=== PATIENT | female | born 1965 | race African-American/Black ===

== ENCOUNTER 2018-01-05 09:38 | Emergency (ER) | payer BC ==
[2018-01-05] MEDS: predniSONE 20 MG TABLET PO ×2 (10:25)
[2018-01-05] MEDS: KETOROLAC 30 MG/ML INJ. IM ×2 (10:25)
[2018-01-05] MEDS: MORPHINE SULFATE 10 MG/ML VIAL. IM ×2 (10:25)
[2018-01-05] MEDS: ORPHENADRINE CITRATE 60 MG/2 ML VIAL. IM ×2 (10:26)
== END 2018-01-05 13:01 | disposition home or self-care (01) ==
LOC: ER 09:38
DX: G89.29 Other chronic pain (principal); M54.41 Lumbago with sciatica, right side; M54.42 Lumbago with sciatica, left side; I10 Essential (primary) hypertension; Z86.718 Personal history of other venous thrombosis and embolism; Z88.6 Allergy status to analgesic agent
CPT/HCPCS: 96372; 99284; J1885; J2270; J2360; J7512

== ENCOUNTER → 2018-03-12 | Outpatient (CLI) | payer BC ==
[2018-01-05 10:53] VITALS: BP 118/69
[~2018-03-12] MED LIST: LIDO700A39 TP; ORPH100T PO; PRED20TA PO
--- NOTE | 2018-03-14 12:34 | RAD ---
DATE: 03/12/2018 EXAM: DIGITAL SCREEN BILAT W/CAD HISTORY: Routine screening COMPARISON: None available This study was interpreted with the benefit of Computerized Aided Detection (CAD). Breast Density: SCATTERED The breast parenchyma shows scattered fibroglandular densities. Breast parenchyma level B. FINDINGS: No breast mass or architectural distortion is evident. Minimal benign type calcification is present. No suspicious microcalcifications are seen. IMPRESSION: There is no mammographic evidence of malignancy in either breast. BI-RADS CATEGORY: 2 BENIGN FINDING(S) RECOMMENDED FOLLOW-UP: 12M 12 MONTH FOLLOW-UP PQRS compliance statement: Patient information was entered into a reminder system with a target due date for the next mammogram. Mammography is a sensitive method for finding small breast cancers, but it does not detect them all and is not a substitute for careful clinical examination. A negative mammogram does not negate a clinically suspicious finding and should not result in delay in biopsying a clinically suspicious abnormality. "Our facility is accredited by the [employer] Mammography Program."
== END | disposition home or self-care (01) ==
LOC: MAMMO 12:12
PROVIDERS: ATTEND Internal Medicine
DX: Z12.31 Encounter for screening mammogram for malignant neoplasm of breast (principal); I10 Essential (primary) hypertension; Z86.718 Personal history of other venous thrombosis and embolism; Z88.6 Allergy status to analgesic agent
CPT/HCPCS: 77067

== ENCOUNTER → 2018-12-31 | Day surgery (SDC) | payer BC ==
[~2018-12-31] VITALS: Ht 177.8 cm; Wt 102.0 kg
[~2018-12-31] MED LIST changes: +BUPIVACAINE-EPI 0.25%-1:200000 MPF 30 ML VIAL. ONE; +DEXAMETHASONE SOD PHOS 4 MG/ML VIAL ONE; +HYDROmorphone 2 MG/ML VIAL IV PRN; +IV RINGERS,LACTATED 1000ML 1,000 ML IV SCH; +KETOROLAC 30 MG/ML INJ FOR OR. INJ ONE; +LIDO700A21 TP; -LIDO700A39 TP; +LIDOCAINE 1% PF 2 ML VIAL. ID PRN; +LIDOCAINE 2% PF 5 ML VIAL. ONE; +LISI1TAB5 PO; +MORPHINE SULFATE 2 MG/ML VIAL. IV PRN; +MULT-650 PO; +ONDANSETRON PF 4 MG/2 ML VIAL. IV PRN; +ONDANSETRON PF 4 MG/2 ML VIAL. ONE; +OXYTOCIN 10 UNIT/ML VIAL. ONE; +PHEN37.53 PO; +PROCHLORPERAZINE 10 MG/2 ML VIAL. IV PRN; +PROPOFOL 20 ML IV ONE; +SEVOFLURANE 16 TO 30 MINUTES. IH ONE; +TOPI50TA8 PO; +ceFAZolin 2GM PREMIX 2 GM/50 ML BAG IV ONE; +fentaNYL PF VIAL 100 MCG/2 ML VIAL IV PRN; +fentaNYL PF VIAL 100 MCG/2 ML VIAL ONE; +miSOPROStol 200 MCG TABLET ONE
--- NOTE | 2018-12-31 13:11 | PDOC ---
GENERAL General: 53 yrs old AA Lady scheduled for D&C under GA. For Postmenopausal bleeding. VITAL SIGNS Vital Signs/I&O: Vital Signs Date Time Temp Pulse Resp B/P (MAP) Pulse Ox O2 Delivery O2 Flow Rate FiO2 12/31/18 11:28 97.9 56 20 97 97.9 12/31/18 11:26 103/52 Room Air ALLERGIES Allergies: Allergies Coded Allergies Type Severity Reaction Last Updated Verified aspirin Allergy Intermediate was told not to take after PE at age 21 12/31/18 Yes MEDS Medications: Current Medications Medications (Trade) Dose Ordered Sig/Renato Route PRN Reason Start Time Stop Time Status Last Admin Dose Admin Ringer's Solution 1,000 ml @ 30 mls/hr Q24H IV 12/31/18 07:00 12/31/18 18:59 12/31/18 11:37 LAB Lab: Laboratory Tests Test 12/31/18 11:16 POC Urine HCG, Qualitative Hcg negative (Negative) IMAGING Imaging: Under GA Diagnostic D&C done without any Problem. EBL. 7cc. Will see her in office in 2 weeks. ROSLYN MENDOZA MD Dec 31, 2018 13:11
--- NOTE | 2018-12-31 13:19 | OP ---
DATE OF SURGERY: 12/31/2018 PREOPERATIVE DIAGNOSIS: Postmenopausal bleeding. POSTOPERATIVE DIAGNOSIS: Postmenopausal bleeding. OPERATION PERFORMED: Diagnostic D and C. DESCRIPTION OF PROCEDURE: The patient was taken to the operating room. Under general anesthesia, she was placed in a dorsal lithotomy position. Perineum was prepped and draped in the usual manner. Weighted speculum inserted in the posterior vaginal wall. Anterior lip of the cervix held with a tenaculum. Uterine sound is used to measure the length of the uterine cavity, which appears to be normal, and the cervix was dilated first, and medium sized curette was used to curet the endometrial cavity. All the curettings obtained were subjected for pathological examination, which was scant amount. The patient tolerated the procedure well. The speculum tenaculum is removed. The patient was sent to the recovery room in good condition. No complications encountered at the time of the surgery. Postoperative condition is stable. She will be followed in the office in 2 weeks for postoperative care and treatment. ROSLYN MENDOZA MD DR: MARCO/ethan JOB#: [id number] / [id number]
[2018-12-31 13:55] VITALS: BP 130/66
--- NOTE | 2019-01-02 11:07 | PATHOLOGY ---
[facility] Accession Number: [id number] . 01 Material submitted: . endometrium - ENDOMETRIAL CURETTINGS . 01 Clinical history: . PMB . 02 Diagnosis: Endometrial glands, stroma and squamous mucosa "endometrial curettings": - Few benign fragments of endometrial glands admixed with stroma without hyperplasia or malignancy. - Sections also reveal benign fragments of squamous epithelium without atypia or malignancy. See comment. ([facility]; 01/02/2019) QMS/01/02/2019 . 02 Comment: The endometrial tissue is scant for assessment. . Suggest clinical correlation and follow-up as clinically indicated. ([facility]; 01/02/2019) . 02 Electronically signed: . Eliazar Landry MD, Pathologist NPI- [id number] . 01 Gross description: . Received in formalin labeled "Flores, Yola, endometrial curettings" is soft, mucoid, and hemorrhagic moran-brown tissue measuring 2.0 x 1.1 x 0.2 cm which is entirely submitted in A1. ([facility]; 01/01/2019) SYU/SYU . 02 Pathologist provided ICD-10: N95.0 . 02 CPT . 690224 Specimen Comment: A courtesy copy of this report has been sent to Specimen Comment: [phone], . Specimen Comment: Report sent to / DR ESTRADA Performed at: 01 [facility] [address], [place] [id number] MD Juaquin Stokes MD Phone: [phone] Performed at: 02 [facility] [address], [place] [id number] MD Kevin Myles MD Phone: [phone]
== END ==
LOC: SURG 10:57
PROVIDERS: ATTEND Obstetrics & Gynecology
DX: N95.0 Postmenopausal bleeding (principal); Z88.8 Allergy status to other drugs, medicaments and biological substances
CPT/HCPCS: 58558; 81025; 88305; A7015; J0696; J1100; J1885; J2001; J2405; J2704; J3010; J2590

== ENCOUNTER → 2019-04-10 | Outpatient (CLI) | payer BC ==
[2018-12-31 13:55] VITALS: BP 130/66
[~2019-04-10] MED LIST changes: -BUPIVACAINE-EPI 0.25%-1:200000 MPF 30 ML VIAL. ONE; -DEXAMETHASONE SOD PHOS 4 MG/ML VIAL ONE; -HYDROmorphone 2 MG/ML VIAL IV PRN; -IV RINGERS,LACTATED 1000ML 1,000 ML IV SCH; -KETOROLAC 30 MG/ML INJ FOR OR. INJ ONE; -LIDOCAINE 1% PF 2 ML VIAL. ID PRN; -LIDOCAINE 2% PF 5 ML VIAL. ONE; +LISI1TAB19 PO; -LISI1TAB5 PO; -MORPHINE SULFATE 2 MG/ML VIAL. IV PRN; -ONDANSETRON PF 4 MG/2 ML VIAL. IV PRN; -ONDANSETRON PF 4 MG/2 ML VIAL. ONE; -OXYTOCIN 10 UNIT/ML VIAL. ONE; -PROCHLORPERAZINE 10 MG/2 ML VIAL. IV PRN; -PROPOFOL 20 ML IV ONE; -SEVOFLURANE 16 TO 30 MINUTES. IH ONE; -ceFAZolin 2GM PREMIX 2 GM/50 ML BAG IV ONE; -fentaNYL PF VIAL 100 MCG/2 ML VIAL IV PRN; -fentaNYL PF VIAL 100 MCG/2 ML VIAL ONE; -miSOPROStol 200 MCG TABLET ONE
--- NOTE | 2019-04-12 08:29 | KCIC ---
BILATERAL SCREENING MAMMOGRAM History: Routine screening. Comparison: Bilateral mammograms March 12 2018. Technique: Routine bilateral digital mammogram views were obtained. Findings: Breast Tissue Density B : There are scattered areas of fibroglandular density. There are no dominant masses, suspicious microcalcifications, or architectural distortion. IMPRESSION: No mammographic evidence of malignancy. Recommend routine screening. BI-RADS category 1: Negative. The images were reviewed with computer aided detection. Patient information is entered into the reminder system with a target due date for the next screening mammogram. Mammography is the most sensitive method for finding small breast cancers, but it does not detect them all and is not a substitute for careful clinical examination. A negative mammogram does not negate a clinically suspicious finding and should not result in delay in biopsying a clinically suspicious abnormality. "Our facility is accredited by the [employer] Mammography Program." Electronically signed by: Lamin Delgado MD (04/12/2019 8:26 AM) [id number]
== END | disposition home or self-care (01) ==
LOC: KCIC MAMMO 11:17
PROVIDERS: ATTEND Obstetrics & Gynecology
DX: Z12.31 Encounter for screening mammogram for malignant neoplasm of breast (principal)
CPT/HCPCS: 77067

== ENCOUNTER 2019-05-27 06:25 | Inpatient (IN) | payer BC ==
--- NOTE | 2019-05-26 12:53 | HP ---
ADMIT DATE: CHIEF COMPLAINT AND HISTORY OF PRESENT ILLNESS: This patient is a 54-year-old -[place] female who is a 1, para 1 and her last delivery was about 25 years ago. The patient was referred by Dr. Carreon for postmenopausal bleeding and she started menopause 2 years ago and then started bleeding on 12/13/2018 for 4 days and she also had a back surgery for lipoma and she is on high blood pressure medications as well as phentermine to lose weight. REVIEW OF SYSTEMS: Essentially negative except as mentioned above. PHYSICAL EXAMINATION: VITAL SIGNS: Reveals the vital signs being stable. HEAD, EYES, NOSE, THROAT: Within normal limits. LUNGS: Clear. HEART: Sounds regular sinus rhythm. ABDOMEN: Soft. PELVIC: Shows external genitalia being normal. Cervical os is closed. On bimanual exam, uterus feels bulky. No adnexal masses are palpable at this time. Mild vaginal bleeding noted at the time of the examination. EXTREMITIES: No edema of feet. She did have a diagnostic D and C on 12/31/2018. At the present time, she is scheduled for an abdominal hysterectomy. DIAGNOSES: Postmenopausal bleeding, hypertension. PLAN: Abdominal hysterectomy. The details of the surgery, the risks and complications, like hemorrhage, infection, injury to the bladder or bowel has been explained to the patient and she is willing for the operation at the present time. ROSLYN MENDOZA MD DR: MARCO/ethan JOB#: [id number] / [id number]
[2019-05-27] VITALS (12 sets, daily range): BP systolic 127–169; BP diastolic 61–90
[~2019-05-27] VITALS: Ht 175.3 cm; Wt 107.0 kg
[2019-05-27] MEDS ORDERED: LIDOCAINE 1% PF 2 ML VIAL. ID PRN (07:00)
[2019-05-27] MEDS ORDERED: ONDANSETRON PF 4 MG/2 ML VIAL. IV PRN (07:00)
[2019-05-27] MEDS ORDERED: HYDROmorphone 2 MG/ML VIAL IV PRN (07:00)
[2019-05-27] MEDS ORDERED: fentaNYL PF VIAL 100 MCG/2 ML VIAL IV PRN (07:00)
[2019-05-27] MEDS: IV RINGERS,LACTATED 1000ML 1,000 ML IV SCH ×2 (07:29→10:20)
--- NOTE | 2019-05-27 07:41 | RAD ---
Two-view chest dated 05/27/2019. Comparison made to 06/18/2010. CLINICAL INDICATION: Preop for hysterectomy. FINDINGS: PA and lateral views obtained. Heart and mediastinal contours are within normal limits. Lungs are clear. No consolidation or pleural effusion. No pneumothorax. IMPRESSION: No acute radiographic abnormality. Electronically signed by: Mirza Tyson MD (05/27/2019 7:38 AM) [facility]
--- NOTE | 2019-05-27 07:48 | EKG ---
[facility] [address] [place] [address] Test Date: 2019-05-27 Test Time: 07:44:10 Pat Name: BRIDGET GUTIERREZ Department: Room: [place] [address] Gender: F Director Fundraising: : 1965 Requested By: ROSLYN MENDOZA Order Number: [id number] Reading MD: Measurements Intervals [place] Rate: 55 P: 52 TX: 156 QRS: 42 QRSD: 74 T: 43 QT: 418 QTc: 402 Interpretive Statements Cannot analyze ECG CHEST LEAD(S) MISSING! (Measurements might be questionable) RI6.01 No previous ECG available for comparison
[2019-05-27] MEDS ORDERED: ONDANSETRON PF 4 MG/2 ML VIAL. ONE (07:54)
[2019-05-27] MEDS ORDERED: DEXAMETHASONE SOD PHOS 4 MG/ML VIAL ONE ×2 (07:54→08:33)
[2019-05-27] MEDS ORDERED: LIDOCAINE 2% PF 5 ML VIAL. ONE (07:54)
[2019-05-27] MEDS ORDERED: fentaNYL PF VIAL 100 MCG/2 ML VIAL ONE ×2 (07:54→10:04)
[2019-05-27] MEDS ORDERED: PROPOFOL 20 ML IV ONE (07:54)
[2019-05-27] MEDS ORDERED: MIDAZOLAM HCL/PF 2 MG/2 ML VIAL. ONE (07:54)
[2019-05-27] MEDS ORDERED: ROCURONIUM 50 MG/5 ML VIAL. ONE (07:54)
[2019-05-27 08:00] LABS: BILIRUBIN,URINE NEGATIVE (NEG); CLARITY,URINE CLEAR; COLOR,URINE YELLOW; NITRITE,URINE NEGATIVE (NEG); PROTEIN,URINE NEGATIVE (NEG-TRACE)
[2019-05-27 08:04] LABS: BASO % 0 % (0-3); EOS # 0.1 x10^3/uL (0.0-0.7); EOS % 1 % (0-3); HEMATOCRIT 37.8 % (36.0-47.0); HEMOGLOBIN 12.5 g/dL (12.0-15.5); LYMPH # 2.3 x10^3/uL (1.0-4.8); LYMPH % 55 % (24-48); MEAN CORPUSCULAR HEMOGLOBIN 30 pg (25-35); MEAN CORPUSCULAR HGB CONC 33 g/dL (31-37); MEAN CORPUSCULAR VOLUME 92 fL (79-100); MONO # 0.2 x10^3/uL (0.0-1.1); MONO % 5 % (0-9); NEUT # 1.6 x10^3/uL (1.8-7.7); NEUT % 38 % (31-73); PLATELET COUNT 174 x10^3/uL (140-400); RED BLOOD COUNT 4.11 x10^6/uL (3.50-5.40); RED CELL DISTRIBUTION WIDTH 14.8 % (11.5-14.5); WHITE BLOOD COUNT 4.2 x10^3/uL (4.0-11.0)
[2019-05-27 08:16] LABS: BACTERIA,URINE FEW /HPF (0-FEW); RBC,URINE 0 /HPF (0-2); SQUAMOUS EPITHELIAL CELL,UR FEW /LPF; WBC,URINE OCC /HPF (0-4)
[2019-05-27] MEDS ORDERED: FAMOTIDINE 20 MG/2 ML VIAL ONE (08:33)
[2019-05-27] MEDS ORDERED: GLYCOPYRROLATE 1 MG/5 ML VIAL. ONE (08:57)
[2019-05-27] MEDS ORDERED: NEOSTIGMINE METHYLSULFATE 5 MG/5 ML SYRINGE. ONE (09:10)
[2019-05-27] MEDS ORDERED: GELATIN SPONGE SIZE 12-7MM SPONGE. ONE (09:28)
[2019-05-27] MEDS ORDERED: GELATIN SPONGE SIZE 100. ONE (09:28)
[2019-05-27] MEDS ORDERED: DESFLURANE 61 TO 120 MINUTES IH ONE (09:46)
[2019-05-27] MEDS ORDERED: IV NORMAL SALINE 1000ML BAG 1,000 ML IV SCH (10:03)
--- NOTE | 2019-05-27 10:03 | PDOC ---
GENERAL General: 54yrs old Lady admitted for postmenopausal bleeding. Also Admitted for Abdominal Hysterectomy. VITAL SIGNS Vital Signs/I&O: Vital Signs Date Time Temp Pulse Resp B/P (MAP) Pulse Ox O2 Delivery O2 Flow Rate FiO2 05/27/19 07:25 97.3 55 18 99 97.3 05/27/19 07:22 163/79 Room Air ALLERGIES Allergies: Allergies Coded Allergies Type Severity Reaction Last Updated Verified aspirin Allergy Intermediate was told not to take after PE at age 21 05/27/19 Yes MEDS Medications: Current Medications Medications (Trade) Dose Ordered Sig/Renato Route PRN Reason Start Time Stop Time Status Last Admin Dose Admin Ringer's Solution 1,000 ml @ 30 mls/hr Q24H IV 05/27/19 07:00 05/27/19 18:59 05/27/19 07:29 Cefazolin Sodium/ Dextrose 50 ml @ 100 mls/hr 1X PREOP PRN IV PRIOR TO PROCEDURE 05/27/19 06:00 05/27/19 18:00 05/27/19 08:20 Gelatin (Gelfoam Size 12-7mm) 1 each STK-MED ONCE .ROUTE 05/27/19 09:28 05/27/19 09:28 DC 05/27/19 09:29 LAB Lab: Laboratory Tests Test 05/27/19 07:30 05/27/19 07:40 White Blood Count 4.2 x10^3/uL (4.0-11.0) Red Blood Count 4.11 x10^6/uL (3.50-5.40) Hemoglobin 12.5 g/dL (12.0-15.5) Hematocrit 37.8 % (36.0-47.0) Mean Corpuscular Volume 92 fL (79-100) Mean Corpuscular Hemoglobin 30 pg (25-35) Mean Corpuscular Hemoglobin Concent 33 g/dL (31-37) Red Cell Distribution Width 14.8 % (11.5-14.5) H Platelet Count 174 x10^3/uL (140-400) Neutrophils (%) (Auto) 38 % (31-73) Lymphocytes (%) (Auto) 55 % (24-48) H Monocytes (%) (Auto) 5 % (0-9) Eosinophils (%) (Auto) 1 % (0-3) Basophils (%) (Auto) 0 % (0-3) Neutrophils # (Auto) 1.6 x10^3/uL (1.8-7.7) L Lymphocytes # (Auto) 2.3 x10^3/uL (1.0-4.8) Monocytes # (Auto) 0.2 x10^3/uL (0.0-1.1) Eosinophils # (Auto) 0.1 x10^3/uL (0.0-0.7) Basophils # (Auto) 0.0 x10^3/uL (0.0-0.2) Urine Collection Type Unknown Urine Color Yellow Urine Clarity Clear Urine pH 6.0 Urine Specific [place] 1.020 Urine Protein Negative mg/dL (NEG-TRACE) Urine Glucose (UA) Negative mg/dL (NEG) Urine Ketones (Stick) Negative mg/dL (NEG) Urine Blood Negative (NEG) Urine Nitrite Negative (NEG) Urine Bilirubin Negative (NEG) Urine Urobilinogen Dipstick 1.0 mg/dL (0.2 mg/dL) Urine Leukocyte Esterase Trace (NEG) Urine RBC 0 /HPF (0-2) Urine WBC Occ /HPF (0-4) Urine Squamous Epithelial Cells Few /LPF Urine Bacteria Few /HPF (0-FEW) Urine Mucus Slight /LPF Laboratory Tests 05/27/19 07:30 ASSESSMENT & PLAN A&P Under GA Abdominal Hysterectomy done. EBL 100cc. ROSLYN MENDOZA MD May 27, 2019 10:03
[2019-05-27] MEDS ORDERED: NALOXONE 0.4 MG/ML VIAL. IV PRN (10:15)
[2019-05-27] MEDS ORDERED: diphenhydrAMINE HCL 25 MG CAPSULE PO PRN (10:15)
[2019-05-27] MEDS ORDERED: ONDANSETRON PF 4 MG/2 ML VIAL. IVP PRN (10:15)
[2019-05-27] MEDS ORDERED: oxyCODONE/APAP 5/325 1 TAB TABLET PO PRN (10:15)
[2019-05-27] MEDS ORDERED: DEXTROSE 50% 25 GM / 50ML DISP.SYRIN. IV PRN (10:15)
[2019-05-27] MEDS ORDERED: MORPHINE SULFATE/PF 30 ML IV PRN (10:15)
[2019-05-27] MEDS ORDERED: 0.9 % SODIUM CHLORIDE 10 ML DISP.SYRIN. IV PRN (10:15)
[2019-05-27] MEDS ORDERED: ZOLPIDEM 5 MG TABLET. PO PRN (10:15)
[2019-05-27] MEDS: PROCHLORPERAZINE 10 MG/2 ML VIAL. IV PRN ×2 (10:21→11:07)
[2019-05-27] MEDS: fentaNYL PF VIAL 100 MCG/2 ML VIAL IV PRN ×2 (10:22→11:08)
[2019-05-27] MEDS: MORPHINE SULFATE 2 MG/ML VIAL. IV PRN ×2 (10:24→11:08)
--- NOTE | 2019-05-27 10:30 | OP ---
DATE OF SURGERY: 05/27/2019 PREOPERATIVE DIAGNOSIS: Postmenopausal bleeding. POSTOPERATIVE DIAGNOSIS: Postmenopausal bleeding. OPERATION PERFORMED: Abdominal hysterectomy. DESCRIPTION OF PROCEDURE: The patient was taken to the operating room under general anesthesia. She was placed in a dorsal supine position. Rosas catheter introduced into bladder for continuous bladder drainage. Lower abdomen was prepped and draped in the usual manner. A Pfannenstiel incision was made in the lower abdomen and abdomen opened in layers. Visualization of pelvic structures revealed slightly enlarged uterus and both the tubes and ovaries appeared normal. The round ligament on either side was clamped, ligated, cut and sutured with #1 chromic catgut sutures and the broad ligament on either side was clamped, ligated, cut and sutured with 0 chromic catgut sutures and the bladder flap peritoneum was dissected. Bladder was pushed way down the lower segment of the uterus. Uterine vessels on either side were held with Rafal clamps and the vessels were doubly ligated with 0 chromic catgut sutures. After the complete reflection of bladder flap peritoneum, the uterosacral cardinal ligaments on either side was clamped, ligated, cut and sutured with 0 chromic catgut sutures. A stab wound incision was made below the cervix posteriorly and the incision was extended all around below the cervix. Thus, the uterus with the cervix was removed and subjected for pathological examination. The cut edges of the vaginal mucous membrane were brought together in the midline and sutured together using 0 chromic catgut sutures. Angle of the vagina was anchored to the uterosacral cardinal ligaments on either side using [id number] 0 chromic catgut sutures and after this, a small piece of Gelfoam sponge was placed below the bladder flap peritoneum. Re-peritonealization was done with continuous 0 chromic catgut sutures and after this, there was no oozing or any active bleeding and abdomen closed in layers using continuous 0 chromic catgut sutures for the peritoneum, the muscle, the fascia with 0 chromic catgut sutures and then 3-0 plain catgut sutures applied for subcutaneous tissue, 3-0 Vicryl subcutaneous sutures were placed, a pressure dressing was given. The patient was sent to the recovery room in good condition. No complications encountered at the time of the procedure. Estimated blood loss about 100 mL. Postoperative condition was stable. ROSLYN MENDOZA MD DR: Ghada JOB#: [id number] / [id number]
--- NOTE | 2019-05-27 11:35 | NUR ---
Patient admitted to room 305 per bed from PACU. Assessment completed and some orientation given but the patient is very drowsy but she does arouse to her name. Family at bedside.
[2019-05-27] MEDS: IV NORMAL SALINE 1000ML BAG 1,000 ML IV SCH ×2 (13:30→20:03)
[2019-05-27] MEDS: DOCUSATE SODIUM 100 MG CAPSULE. PO SCH (21:21)
[2019-05-28 03:55] VITALS: BP 120/55
[2019-05-28] MEDS: IV NORMAL SALINE 1000ML BAG 1,000 ML IV SCH (06:03)
--- NOTE | 2019-05-28 08:07 | PDOC ---
GENERAL General: Pt awake and feeling ok. Explained to pt about operative findings . Vital signs stable. VITAL SIGNS Vital Signs/I&O: Vital Signs Date Time Temp Pulse Resp B/P (MAP) Pulse Ox O2 Delivery O2 Flow Rate FiO2 05/28/19 03:55 98.2 82 12 120/55 (76) 100 Room Air 98.2 05/27/19 23:19 2.0 I & O 05/27/19 05/27/19 05/28/19 15:00 23:00 07:00 Intake Total 1750 ml 605 ml Output Total 350 ml 600 ml 1000 ml Balance 1400 ml 5 ml -1000 ml ALLERGIES Allergies: Allergies Coded Allergies Type Severity Reaction Last Updated Verified aspirin Allergy Intermediate was told not to take after PE at age 21 05/27/19 Yes MEDS Medications: Current Medications Medications (Trade) Dose Ordered Sig/Renato Route PRN Reason Start Time Stop Time Status Last Admin Dose Admin Gelatin (Gelfoam Size 12-7mm) 1 each STK-MED ONCE .ROUTE 05/27/19 09:28 05/27/19 09:28 DC 05/27/19 09:29 Sodium Chloride 1,000 ml @ 100 mls/hr Q10H IV 05/27/19 10:03 05/27/19 13:30 Sodium Chloride 1,000 ml @ 25 mls/hr Q24H IV 05/27/19 10:03 05/27/19 10:03 Morphine Sulfate 30 ml @ 0 mls/hr CONT PRN PRN IV PER PROTOCOL 05/27/19 10:15 05/27/19 11:09 Docusate Sodium (Colace) 100 mg BID PO 05/27/19 21:00 05/27/19 21:21 ASSESSMENT & PLAN A&P No fever. Abdomen soft. Urine clear. Will increase pt diet ROSLYN MENDOZA MD May 28, 2019 08:07
[2019-05-28] MEDS: oxyCODONE/APAP 5/325 1 TAB TABLET PO PRN ×3 (09:13→20:33)
[2019-05-28 11:10] VITALS: BP 118/62
[2019-05-28] MEDS: DOCUSATE SODIUM 100 MG CAPSULE. PO SCH ×2 (14:52→20:35)
[2019-05-28] MEDS: BENZOCAINE/MENTHOL LOZENGE. PO PRN (15:30)
[2019-05-28 18:55] VITALS: BP 104/56
[2019-05-28 23:06] VITALS: BP 114/64
[2019-05-29 03:00] VITALS: BP 118/58
[2019-05-29] MEDS: oxyCODONE/APAP 5/325 1 TAB TABLET PO PRN ×3 (03:10→18:25)
[2019-05-29 07:00] VITALS: BP 156/92
--- NOTE | 2019-05-29 09:17 | PDOC ---
GENERAL General: Patient doing ok. Has some abdominal pain and discomfort. VITAL SIGNS Vital Signs/I&O: Vital Signs Date Time Temp Pulse Resp B/P (MAP) Pulse Ox O2 Delivery O2 Flow Rate FiO2 05/29/19 07:00 98.0 80 16 156/92 (113) 99 Room Air 98.0 I & O 05/28/19 05/28/19 05/29/19 15:00 23:00 07:00 Intake Total 120 ml Balance 120 ml ALLERGIES Allergies: Allergies Coded Allergies Type Severity Reaction Last Updated Verified aspirin Allergy Intermediate was told not to take after PE at age 21 05/27/19 Yes MEDS Medications: Current Medications Medications (Trade) Dose Ordered Sig/Renato Route PRN Reason Start Time Stop Time Status Last Admin Dose Admin Throat Lozenges (Cepacol Sore Throat Lozenge) 1 abelino PRN Q2HRS PRN PO SORE THROAT 05/28/19 15:30 05/28/19 15:30 ASSESSMENT & PLAN A&P Abdomen soft. Incision healing well. Plan dismissal in am tomorrow. ROSLYN MENDOZA MD May 29, 2019 09:17
[2019-05-29] MEDS: DOCUSATE SODIUM 100 MG CAPSULE. PO SCH ×2 (09:25→20:49)
[2019-05-29] MEDS: BENZOCAINE/MENTHOL LOZENGE. PO PRN (09:25)
[2019-05-29 11:00] VITALS: BP 111/61
[2019-05-29 15:00] VITALS: BP 135/78
[2019-05-29 19:30] VITALS: BP 123/53
[2019-05-29 23:25] VITALS: BP 129/56
[2019-05-30] MEDS: oxyCODONE/APAP 5/325 1 TAB TABLET PO PRN ×3 (03:52→15:30)
[2019-05-30 03:53] VITALS: BP 127/45
[2019-05-30 07:00] VITALS: BP 120/69
[2019-05-30] MEDS ORDERED: MAGNESIUM HYDROXIDE 2,400 MG/30 ML ORAL.SUSP. PO PRN (09:00)
[2019-05-30] MEDS: DOCUSATE SODIUM 100 MG CAPSULE. PO SCH (09:22)
--- NOTE | 2019-05-30 10:43 | PDOC ---
GENERAL General: Patient doing ok. No problems. Likes to go hpme today. VITAL SIGNS Vital Signs/I&O: Vital Signs Date Time Temp Pulse Resp B/P (MAP) Pulse Ox O2 Delivery O2 Flow Rate FiO2 05/30/19 07:00 98.3 65 18 120/69 (86) 99 Room Air 98.3 I & O 05/29/19 05/29/19 05/30/19 15:00 23:00 07:00 Intake Total 520 ml 660 ml 480 ml Balance 520 ml 660 ml 480 ml ALLERGIES Allergies: Allergies Coded Allergies Type Severity Reaction Last Updated Verified aspirin Allergy Intermediate was told not to take after PE at age 21 05/27/19 Yes MEDS Medications: Current Medications Medications (Trade) Dose Ordered Sig/Renato Route PRN Reason Start Time Stop Time Status Last Admin Dose Admin Magnesium Hydroxide (Milk Of Magnesia) 2,400 mg PRN DAILY PRN PO CONSTIPATION 05/30/19 09:00 05/30/19 09:22 ASSESSMENT & PLAN A&P Vital signs stable. Abdomen soft. Incision healing ok. ROSLYN MENDOZA MD May 30, 2019 10:42
[2019-05-30 11:00] VITALS: BP 126/63
[2019-05-30] MEDS ORDERED: TRAM50TA PO (13:50)
[2019-05-30 15:00] VITALS: BP 141/85
--- NOTE | 2019-06-01 09:06 | PATHOLOGY ---
[facility] Accession Number: [id number] . 01 Material submitted: . uterus - UTERUS AND CERVIX . 01 Clinical history: . PMB . 02 Diagnosis: Uterus, abdominal hysterectomy: - Endometrial polyp. - Chronic cervicitis with focal squamous metaplasia. - Nabothian cysts, several, small. - Inactive/weakly proliferative endometrium. - Adenomyosis, uterine corpus,focal. ([facility]:knotter [facility]; 05/29/2019) R 06/01/2019 0808 Local . 02 Comment: There is no atypia or evidence of malignancy. ([facility]; 05/29/2019) . 02 Electronically signed: . Kevin Myles MD, Pathologist NPI- [id number] . 01 Gross description: . The specimen is received in formalin, labeled "Yola Flores, uterus and cervix" and consists of a 76 g uterus with attached cervix measuring 8.8 x 4.8 x 3.9 cm. The serosa is moran-brown with focal hemorrhage on the anterior aspect. The 1.0 cm slitlike cervical os is surrounded by focally hemorrhagic moran ectocervical mucosa. It is bivalved revealing multiple nabothian cysts. The endocervical canal is pink-moran and corrugated measuring 2.8 cm. The endometrial cavity is roughly triangular measuring 3.5 cm in length and up to 2.9 cm in width. The cavity is focally scarred and the endometrium is pink red and attenuated measuring 0.1 cm. There is a 1.0 x 0.7 cm polyp in the upper posterior endometrial cavity. The myometrium is pink-moran measuring up to 1.9 cm with no nodules or mass lesions. Dye Weigher Helper sections are submitted as follows: . A1: Anterior cervix A2: Posterior cervix A3: Anterior endomyometrium A4: Posterior endomyometrium A5: Endometrial polyp (SDY; 05/28/2019) SYU/SYU 05/28/2019 1346 Local . 02 Pathologist provided ICD-10: N84.0, N72, N88.8, N80.0 . 02 CPT . 800077 Specimen Comment: A courtesy copy of this report has been sent to [phone], [phone] Specimen Comment: [id number] Specimen Comment: Report sent to / DR ESTRADA Performed at: 01 [facility] [address], [place] [id number] MD Juaquin Stokes MD Phone: [phone] Performed at: 02 [facility] [address] [place], [place] [id number] MD Kevin Myles MD Phone: [phone]
== END 2019-05-30 16:30 | disposition home or self-care (01) | DRG 743 ==
LOC: OPSVCIP 06:25 → 3 NORTH 11:40
PROVIDERS: ADMIT Obstetrics & Gynecology; ATTEND Obstetrics & Gynecology
PROC: 0UT90ZZ Resection of Uterus, Open Approach (ICD-10-PCS; principal; 2019-05-27 08:30)
DX: N95.0 Postmenopausal bleeding (principal); I10 Essential (primary) hypertension; N85.2 Hypertrophy of uterus; Z90.710 Acquired absence of both cervix and uterus; Z88.6 Allergy status to analgesic agent
CPT/HCPCS: 36415; 71046; 81001; 85025; 86850; 86900; 86901; 87086; 88307; 93005; A7015; J0696; J0780; J1100; J2001; J2250; J2270; J2405; J2704; J2710; J3010; J3490; J7030; J7120; A4461; G0378

== ENCOUNTER 2019-07-19 19:40 | Emergency (ER) | payer BC ==
[~2019-07-19] VITALS: Ht 175.3 cm; Wt 107.0 kg
[~2019-07-19 19:40] MED LIST changes: +TRAM50TA PO
[2019-07-19] MEDS ORDERED: IV NORMAL SALINE 1000ML BAG 1,000 ML IV SCH (20:17)
--- NOTE | 2019-07-19 20:22 | PHYS DOC ---
Past Medical History Past Medical History: DVT, Hypertension, Other Additional Past Medical Histor: CHRONIC BACK PAIN, BULGING DISC Past Surgical History: Hysterectomy, Other Additional Past Surgical Histo: 5 BACK SX Alcohol Use: None Drug Use: None Adult General Chief Complaint Chief Complaint: NAUSEA/VOMITING/DIARRHA HPI HPI Patient is a 54 year old female who presents with a hysterectomy by Dr. Pierson May 27, 2019. She states that since then she has been unable to keep food down is consciously nauseated. She states she's also had a lot of constipation problems. Patient states she's been having to take milk of magnesia to help her have a stool. She states that 4 days ago was her last bowel movement that she took milk of magnesia. She states that she has been seen by her TUCK POINTER and her primary care Dr Estrada and she is switched around foods thinking that maybe the different foods are causing her to vomit or have acid reflux. She states that she took all spicy foods and has been trying to stay away from different high- fat foods as she has sometimes correlate this with vomiting. She states now she is just vomiting every now and then but is keeping down some food. She states that last night she ate a salad and some chicken and rice but she throughout the Rice only. She states today all she's had is soup but she has kept it down. She states she is keeping down fluids. She states that the only abdominal pain that she has some lower abdomen area where her hysterectomy go incision is located. Patient denies fever, dysuria, blood in her vomit, diarrhea, blood in her stool, chest pain, shortness of air, dizziness, visual changes, numbness tingling, weak ness, headache. Review of Systems Review of Systems GI: low mid abdominal pain intermittent, nausea, vomiting intermittent, constipa tion, denies bloody stools or diarrhea [] All other systems were reviewed and found to be within normal limits, except as documented in this note. Current Medications Current Medications Current Medications Medications (Trade) Dose Ordered Sig/Renato Start Time Stop Time Status Last Admin Dose Admin Famotidine (Pepcid Vial) 20 mg 1X ONCE 07/19/19 20:30 07/19/19 20:31 DC 07/19/19 20:59 20 MG Info (CONTRAST GIVEN -- Rx MONITORING) 1 each PRN DAILY PRN 07/19/19 21:15 07/21/19 21:14 Iohexol (Omnipaque 300 Mg/ml) 100 ml 1X ONCE 07/19/19 21:15 07/19/19 21:16 DC Ondansetron HCl (Zofran) 4 mg 1X ONCE 07/19/19 20:30 07/19/19 20:31 DC 07/19/19 20:59 4 MG Sodium Chloride 1,000 ml @ 1,000 mls/hr Q1H 07/19/19 20:17 07/19/19 21:16 DC 07/19/19 20:56 1,000 MLS/HR Allergies Allergies Allergies Coded Allergies Type Severity Reaction Last Updated Verified aspirin Allergy Intermediate was told not to take after PE at age 21 05/27/19 Yes Physical Exam Physical Exam Constitutional: Well developed, well nourished, no acute distress, non-toxic appearance. [] HENT: Normocephalic, atraumatic, bilateral external ears normal, oropharynx moist, no oral exudates, nose normal. [] Eyes: PERRLA, EOMI, conjunctiva normal, no discharge. [] Neck: Normal range of motion, no tenderness, supple, no stridor. [] Cardiovascular:Heart rate regular rhythm, no murmur [] Lungs & Thorax: Bilateral breath sounds clear to auscultation [] Abdomen: Bowel sounds normal, soft, Low mid tenderness, no masses, no pulsatile masses. [] Skin: Warm, dry, no erythema, no rash. [] Back: No tenderness, no CVA tenderness. [] Extremities: No tenderness, no cyanosis, no clubbing, ROM intact, no edema. [] Neurologic: Alert and oriented X 3, normal motor function, normal sensory function, no focal deficits noted. [] Psychologic: Affect normal, judgement normal, mood normal. [] Current Patient Data Vital Signs Vital Signs Date Time Temp Pulse Resp B/P (MAP) Pulse Ox O2 Delivery O2 Flow Rate FiO2 07/19/19 20:01 98.1 76 18 145/67 (93) 100 Room Air 98.1 Lab Values Laboratory Tests Test 07/19/19 20:30 07/19/19 20:32 White Blood Count 4.6 x10^3/uL (4.0-11.0) Red Blood Count 4.07 x10^6/uL (3.50-5.40) Hemoglobin 12.3 g/dL (12.0-15.5) Hematocrit 37.3 % (36.0-47.0) Mean Corpuscular Volume 92 fL (79-100) Mean Corpuscular Hemoglobin 30 pg (25-35) Mean Corpuscular Hemoglobin Concent 33 g/dL (31-37) Red Cell Distribution Width 14.9 % (11.5-14.5) H Platelet Count 197 x10^3/uL (140-400) Neutrophils (%) (Auto) 40 % (31-73) Lymphocytes (%) (Auto) 53 % (24-48) H Monocytes (%) (Auto) 5 % (0-9) Eosinophils (%) (Auto) 1 % (0-3) Basophils (%) (Auto) 1 % (0-3) Neutrophils # (Auto) 1.8 x10^3/uL (1.8-7.7) Lymphocytes # (Auto) 2.4 x10^3/uL (1.0-4.8) Monocytes # (Auto) 0.2 x10^3/uL (0.0-1.1) Eosinophils # (Auto) 0.1 x10^3/uL (0.0-0.7) Basophils # (Auto) 0.0 x10^3/uL (0.0-0.2) Prothrombin Time 13.2 SEC (11.7-14.0) Prothrombin Time INR 1.0 (0.8-1.1) Urine Collection Type Void Urine Color Yellow Urine Clarity Clear Urine pH 6.0 Urine Specific [place] 1.025 Urine Protein Negative mg/dL (NEG-TRACE) Urine Glucose (UA) Negative mg/dL (NEG) Urine Ketones (Stick) Negative mg/dL (NEG) Urine Blood Negative (NEG) Urine Nitrite Negative (NEG) Urine Bilirubin Negative (NEG) Urine Urobilinogen Dipstick 1.0 mg/dL (0.2 mg/dL) Urine Leukocyte Esterase Moderate (NEG) Urine RBC 0 /HPF (0-2) Urine WBC 5-10 /HPF (0-4) Urine Squamous Epithelial Cells Many /LPF Urine Bacteria Many /HPF (0-FEW) Urine Mucus Marked /LPF Sodium Level 145 mmol/L (136-145) Potassium Level 3.6 mmol/L (3.5-5.1) Chloride Level 108 mmol/L (98-107) H Carbon Dioxide Level 27 mmol/L (21-32) Anion Gap 10 (6-14) Blood Urea Nitrogen 17 mg/dL (7-20) Creatinine 0.9 mg/dL (0.6-1.0) Estimated GFR (Cockcroft-Gault) 79.6 BUN/Creatinine Ratio 19 (6-20) Glucose Level 97 mg/dL (70-99) Calcium Level 9.7 mg/dL (8.5-10.1) Total Bilirubin 0.4 mg/dL (0.2-1.0) Aspartate Amino Transferase (AST) 16 U/L (15-37) Alanine Aminotransferase (ALT) 23 U/L (14-59) Alkaline Phosphatase 98 U/L (46-116) Troponin I Quantitative < 0.017 ng/mL (0.000-0.055) Total Protein 8.1 g/dL (6.4-8.2) Albumin 4.0 g/dL (3.4-5.0) Albumin/Globulin Ratio 1.0 (1.0-1.7) Lipase 186 U/L (73-393) POC Urine HCG, Qualitative Hcg negative (Negative) Laboratory Tests 07/19/19 20:30 Laboratory Tests 07/19/19 20:30 EKG EKG Sinus Rhythm and no STEMI[] Interpretation Time: [address] Trinh Radiology/Procedures Radiology/Procedures [] Impressions: [facility] [address] [place], [place] [id number] IMAGING REPORT Signed PATIENT: BRIDGET GUTIERREZ ACCOUNT: [id number] : 1965 LOCATION: ER AGE: 54 SEX: F EXAM STATUS: REG ER ORD. PHYSICIAN: MAURICE BARR APRN REASON: nausea,vomiting and constipation since 05/27/2019 PROCEDURE: CT ABD PELV W/ IV CONTRST ONLY Exam: CT of abdomen and pelvis with contrast INDICATION: Nausea, vomiting and constipation TECHNIQUE: Sequential axial images through the abdomen and pelvis obtained without IV contrast. Sagittal and coronal reformatted images were reconstructed from the axial data and reviewed. Comparisons: None FINDINGS: Heart size is normal. . Visualized lung bases are clear. No pleural effusion. Liver, spleen, pancreas, gallbladder and adrenals are unremarkable. Kidneys demonstrate symmetric enhancement. No perinephric inflammation or hydronephrosis. No renal or ureteral calculi are identified. Bladder is decompressed not well evaluated. Uterus is not enlarged. No abnormal adnexal mass. Large and small bowel are unremarkable. Appendix is normal. No free intra-abdominal air or fluid. No obstruction. Abdominal aorta has a normal course and caliber. Abdominal vasculature is patent. No enlarged intra-abdominal lymph nodes are identified. No suspicious osseous lesions or acute fractures. IMPRESSION: No acute process identified within the abdomen or pelvis. Exposure: One or more of the following in the visualized dose reduction techniques were utilized for this examination: 1. Automated exposure control 2. Adjustment of the MA and/or KV according to patient size 3. Use of iterative of reconstructive technique Electronically signed by: Jackson Ogden MD (07/19/2019 9:45 PM) [id number] DICTATED and SIGNED BY: JACKSON OGDEN MD DATE: 07/19/192144 Course & Med Decision Making Course & Med Decision Making Abdomen is soft and tender to low mid abdomen. Alert and oriented. Ambulatory with steady gait. Skin pink warm and dry. Speaks in full clear sentences. Lungs are clear to auscultation all lobes. Bowel sounds are normal. Surgical incision is really healed up and there is no signs of infection. Vital signs are within normal limits. Patient does state after she eats any kind of food she feels as though her stomach becomes distended. Patient states she has not tried any GERD medications. She states the last time she had any nausea medication was a couple days ago. No extremity edema. Dragon Disclaimer Dragon Disclaimer This electronic medical record was generated, in whole or in part, using a voice recognition dictation system. Departure Departure Impression: Primary Impression: Nausea & vomiting Additional Impression: Urinary tract infection Disposition: HOME, SELF-CARE Condition: STABLE Referrals: CONNIE ESTRADA MD (PCP) KWASI IZAGUIRRE MD Patient Instructions: Constipation, Adult, Diet for Gastroesophageal Reflux Disease, Adult, Nausea and Vomiting, [id number], Urinary Tract Infection Additional Instructions: Follow-up with Dr. Estrada as scheduled. Take medications as prescribed. Drink plenty of fluids. Scripts Famotidine (PEPCID) 20 Mg Tablet 20 MG PO BID, #20 TAB Prov: MAURICE BARR TERADATA SOLUTION ARCHITECT 07/19/19 Cephalexin (KEFLEX) 500 Mg Capsule 1 CAP PO BID for 7 Days, #14 CAP 0 Refills Prov: MAURICE BARR TERADATA SOLUTION ARCHITECT 07/19/19 Ondansetron (ONDANSETRON ODT) 4 Mg Tab.rapdis 1 TAB PO PRN Q6-8HRS, #20 TAB Prov: RUDY BARRAdelia Vogel APRN 07/19/19 Problem Qualifiers Primary Impression: Nausea & vomiting Vomiting type: unspecified Vomiting Intractability: non-intractable Qualified Codes: R11.2 - Nausea with vomiting, unspecified Additional Impression: Urinary tract infection Urinary tract infection type: site unspecified Hematuria presence: without hematuria Qualified Codes: N39.0 - Urinary tract infection, site not specified RUDY BARRA Jaspreet TERADATA SOLUTION ARCHITECT Jul 19, 2019 20:22
[2019-07-19] MEDS ORDERED: FAMOTIDINE 20 MG/2 ML VIAL IVP ONE (20:30)
[2019-07-19] MEDS ORDERED: ONDANSETRON PF 4 MG/2 ML VIAL. IV ONE (20:30)
[2019-07-19 20:41] LABS: BILIRUBIN,URINE NEGATIVE (NEG); CLARITY,URINE CLEAR; COLOR,URINE YELLOW; NITRITE,URINE NEGATIVE (NEG); PROTEIN,URINE NEGATIVE (NEG-TRACE)
[2019-07-19 20:46] LABS: BASO % 1 % (0-3); EOS # 0.1 x10^3/uL (0.0-0.7); EOS % 1 % (0-3); HEMATOCRIT 37.3 % (36.0-47.0); HEMOGLOBIN 12.3 g/dL (12.0-15.5); LYMPH # 2.4 x10^3/uL (1.0-4.8); LYMPH % 53 % (24-48); MEAN CORPUSCULAR HEMOGLOBIN 30 pg (25-35); MEAN CORPUSCULAR HGB CONC 33 g/dL (31-37); MEAN CORPUSCULAR VOLUME 92 fL (79-100); MONO # 0.2 x10^3/uL (0.0-1.1); MONO % 5 % (0-9); NEUT # 1.8 x10^3/uL (1.8-7.7); NEUT % 40 % (31-73); PLATELET COUNT 197 x10^3/uL (140-400); RED BLOOD COUNT 4.07 x10^6/uL (3.50-5.40); RED CELL DISTRIBUTION WIDTH 14.9 % (11.5-14.5); WHITE BLOOD COUNT 4.6 x10^3/uL (4.0-11.0)
[2019-07-19 20:47] LABS: BACTERIA,URINE MANY /HPF (0-FEW); RBC,URINE 0 /HPF (0-2); SQUAMOUS EPITHELIAL CELL,UR MANY /LPF
[2019-07-19 20:54] LABS: PROTHROMBIN TIME PATIENT 13.2 SEC (11.7-14.0)
[2019-07-19 20:58] LABS: CALCIUM 9.7 mg/dL (8.5-10.1); CREATININE 0.9 mg/dL (0.6-1.0); GFR 79.6; POTASSIUM 3.6 mmol/L (3.5-5.1)
[2019-07-19 21:04] LABS: TOTAL BILIRUBIN 0.4 mg/dL (0.2-1.0); TOTAL PROTEIN 8.1 g/dL (6.4-8.2)
[2019-07-19] MEDS ORDERED: IOHEXOL 300 MG/ML 100ML VIAL. IV ONE (21:15)
[2019-07-19] MEDS ORDERED: CONTRAST GIVEN. MC PRN (21:15)
--- NOTE | 2019-07-19 21:48 | RAD ---
Exam: CT of abdomen and pelvis with contrast INDICATION: Nausea, vomiting and constipation TECHNIQUE: Sequential axial images through the abdomen and pelvis obtained without IV contrast. Sagittal and coronal reformatted images were reconstructed from the axial data and reviewed. Comparisons: None FINDINGS: Heart size is normal. . Visualized lung bases are clear. No pleural effusion. Liver, spleen, pancreas, gallbladder and adrenals are unremarkable. Kidneys demonstrate symmetric enhancement. No perinephric inflammation or hydronephrosis. No renal or ureteral calculi are identified. Bladder is decompressed not well evaluated. Uterus is not enlarged. No abnormal adnexal mass. Large and small bowel are unremarkable. Appendix is normal. No free intra-abdominal air or fluid. No obstruction. Abdominal aorta has a normal course and caliber. Abdominal vasculature is patent. No enlarged intra-abdominal lymph nodes are identified. No suspicious osseous lesions or acute fractures. IMPRESSION: No acute process identified within the abdomen or pelvis. Exposure: One or more of the following in the visualized dose reduction techniques were utilized for this examination: 1. Automated exposure control 2. Adjustment of the MA and/or KV according to patient size 3. Use of iterative of reconstructive technique Electronically signed by: Jackson Sierra MD (07/19/2019 9:45 PM) [facility]
[2019-07-19] MEDS ORDERED: ONDA4TAB12 PO (21:57)
[2019-07-19] MEDS ORDERED: CEPH-264 PO (21:57)
[2019-07-19] MEDS ORDERED: FAMO-63 PO (21:57)
[2019-07-19 22:00] VITALS: BP 152/86
[2019-07-19] MEDS ORDERED: cefTRIAXone IV Push 1 GM VIAL. IVP ONE (22:00)
--- NOTE | 2019-07-20 06:54 | EKG ---
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
== END 2019-07-19 22:22 | disposition home or self-care (01) ==
LOC: ER 19:40
DX: N39.0 Urinary tract infection, site not specified (principal); R11.2 Nausea with vomiting, unspecified; R10.30 Lower abdominal pain, unspecified; K59.00 Constipation, unspecified; I10 Essential (primary) hypertension; G89.29 Other chronic pain; Z90.710 Acquired absence of both cervix and uterus; Z98.890 Other specified postprocedural states; Z88.6 Allergy status to analgesic agent; Z86.718 Personal history of other venous thrombosis and embolism
CPT/HCPCS: 36415; 74177; 80053; 81001; 81025; 83690; 84484; 85025; 85610; 87086; 93005; 96361; 96374; 96375; 99285; J0696; J2405; J3490; J7030

== ENCOUNTER → 2019-08-03 | Outpatient (CLI) | payer BC ==
[2019-07-19 22:00] VITALS: BP 152/86
[~2019-08-03] MED LIST changes: +CEPH-264 PO; +FAMO-63 PO; +ONDA4TAB12 PO
--- NOTE | 2019-08-03 09:33 | RAD ---
Limited abdomen ultrasound study Clinical indications: Right upper quadrant abdominal pain. FINDINGS: The pancreas is homogeneous without focal enlargement. The intrahepatic portion of the IVC is patent. The liver measures 13.9 cm in length which is normal. No hepatic mass is seen. No gallstones are seen within the gallbladder. Biliary sludge is seen within the neck of the gallbladder. No gallbladder wall thickening or pericholecystic free fluid is seen. The extra hepatic bile duct measures 4 mm in caliber which is normal. The length of the right kidney is 11 cm. No hydronephrosis or renal mass or perinephric fluid collection is seen on the right side. IMPRESSION: Biliary sludge within the gallbladder. Electronically signed by: Jonathan Shen MD (08/03/2019 9:30 AM) [facility]
== END | disposition home or self-care (01) ==
LOC: US 07:10
PROVIDERS: ATTEND Internal Medicine
DX: K82.8 Other specified diseases of gallbladder (principal)
CPT/HCPCS: 76705

== ENCOUNTER → 2019-08-24 | Day surgery (SDC) | payer BC ==
[~2019-08-24] MED LIST changes: +FERR325T14 PO; +IV RINGERS,LACTATED 1000ML 1,000 ML IV ONE; +LIDOCAINE 2% PF 5 ML VIAL. ONE; +OMEP40CA45 PO; +PROPOFOL 20 ML IV ONE
--- NOTE | 2019-08-24 14:22 | PDOC4 ---
PROCEDURE Procedure EGD/biopsies] Indication: Dyspepsia/nausea Meds: per anesthesia Findings: E--Grade A reflux at 36cm. G--Couple of small erosions in body. Mild prepyloric erythema. Antral biopsies taken. D--normal to second portion. Malik. well. IMP: Endoscopically mild reflux; whole story? Non-specific erosions, antral erythema, biopsies pending. REC: Trial of omeperazole 40mg daily. Await biopsies. F/u in 2 weeks. If no better, consider GES, CT head. EMIR RAYA MD Aug 24, 2019 14:22
[2019-08-24 14:47] VITALS: BP 132/72
--- NOTE | 2019-08-26 17:06 | PATHOLOGY ---
[facility] Accession Number: [id number] . 01 Material submitted: . stomach - BIOPSY ANTRUM . 01 Clinical history: . Dyspepsia . 02 Diagnosis: Gastric biopsies, antrum: - Chronic gastritis, mild. ([facility] 08/26/2019) [facility] 08/26/2019 0945 Local . 02 Comment: Sections of the gastric biopsy reveal segments of gastric body and gastric antral/body transition mucosa showing congestion and mild chronic inflammation. A properly controlled immunoperoxidase stain for Helicobacter is negative for Helicobacter organisms. ([facility] 08/26/2019) . Special stains performed: Immunoperoxidase stain for Helicobacter on A1. . 02 Electronically signed: . Kevin Myles MD, Pathologist NPI- [id number] . 01 Gross description: . The specimen is received in formalin, labeled "Yola Flores, biopsy antrum". Received are two segments of pale moran soft tissue ranging in size from 0.6 to 0.9 cm in maximum dimensions. The specimen is submitted entirely in cassette A1. ([facility]; 08/25/2019) [facility] 08/25/2019 1107 Local . 02 Pathologist provided ICD-10: K29.50 . 02 CPT . 673494, [id number] Specimen Comment: A courtesy copy of this report has been sent to [phone], [phone] Specimen Comment: [id number] Specimen Comment: Report sent to / DR ESTRADA Performed at: 01 [facility] [address], [place], [place] [id number] MD Juaquin Stokes MD Phone: [phone] Performed at: 02 [facility] [address], [place] [id number] MD Kevin Myles MD Phone: [phone]
== END ==
LOC: ENDOS 13:40
PROVIDERS: ATTEND Internal Medicine Gastroenterology
DX: R13.10 Dysphagia, unspecified (principal); K29.50 Unspecified chronic gastritis without bleeding; K21.0 Gastro-esophageal reflux disease with esophagitis; K31.89 Other diseases of stomach and duodenum; I10 Essential (primary) hypertension; Z90.710 Acquired absence of both cervix and uterus
CPT/HCPCS: 43239; J2001; J2704

== ENCOUNTER → 2019-09-14 | Outpatient (CLI) | payer BC ==
[2019-08-24 14:47] VITALS: BP 132/72
[~2019-09-14] MED LIST changes: -IV RINGERS,LACTATED 1000ML 1,000 ML IV ONE; -LIDOCAINE 2% PF 5 ML VIAL. ONE; -PROPOFOL 20 ML IV ONE
--- NOTE | 2019-09-14 13:21 | RAD ---
Gastric emptying nuclear medicine study History: Abdominal pain for 3 months. COMPARISON: Technique: After oral ingestion of an egg meal containing 2.2 mCi of technetium 99m sulfur colloid, anterior and posterior planar images of the upper abdomen were performed immediately and at 1 hour and 2 hour and 3 hour and 4 hour increments. Percent retention of radiotracer activity was measured and calculated at 1 hour and 2 hour and 3 hour and 4 hour increments. Findings: Percent retention at 1 hour is 87%. Normal range is 34.8% to 91%. Percent retention at 2 hours is 83%. Normal range is 2.7% to 60%. Percent retention at 3 hours is 68%. Normal range is 0.5% to 28%. Percent retention at 4 hours is 55%. Normal range is 0% to 10%. Impression: Delay in gastric emptying. Electronically signed by: Jonathan Shen MD (09/14/2019 1:18 PM) [facility] [place]
== END | disposition home or self-care (01) ==
LOC: NM 08:07
PROVIDERS: ATTEND Internal Medicine Gastroenterology
DX: K30 Functional dyspepsia (principal)
CPT/HCPCS: 78264; A9541

== ENCOUNTER → 2019-10-06 | Outpatient (CLI) | payer BC ==
[2019-08-24 14:47] VITALS: BP 132/72
[~2019-10-06] MED LIST changes: +IOHEXOL 300 MG/ML 100ML VIAL. IV ONE
--- NOTE | 2019-10-06 09:33 | KCIC ---
EXAM: CT Head with and without IV contrast INDICATION: Family history of ovarian cancer, recent hysterectomy for abnormal bleeding. Patient also has a gastroparesis. Assess for tumor. TECHNIQUE: Multi-detector row CT images were obtained of the head with and without the use of IV contrast. All CT scans performed at this facility utilize dose optimization techniques as appropriate to the exam, including the following: Automated exposure control and adjustment of the mA and/or KV according to patient size (this includes techniques or standardized protocols for targeted exams where dose is indication/reason for exam). IV CONTRAST: Administered COMPARISON: Abdomen and pelvis CT with IV contrast 07/19/2019. FINDINGS: BRAIN PARENCHYMA: No evidence of acute intraparenchymal hemorrhage or infarct. No abnormal parenchymal density or mass. VENTRICLES & EXTRA-AXIAL SPACES: Ventricles are within normal limits. Basilar cisterns are patent. No pathologic extra-axial fluid collection or mass. ORBITS: Orbital contents are unremarkable. SINUSES: Visualized paranasal sinuses and mastoid air cells are clear. OSSEOUS & SOFT TISSUES: Calvarium and skull base are intact. IMPRESSION: Normal CT of the head with and without contrast. No evidence of an intracranial mass/tumor. Electronically signed by: Black Barriga MD (10/06/2019 9:31 AM) [id number]
== END ==
LOC: KCIC CT 08:33
PROVIDERS: ATTEND Internal Medicine Gastroenterology
DX: K31.84 Gastroparesis (principal)
CPT/HCPCS: 70470; Q9967

== ENCOUNTER → 2021-03-23 | Outpatient (CLI) | payer BC ==
[2019-08-24 14:47] VITALS: BP 132/72
[~2021-03-23] MED LIST changes: -IOHEXOL 300 MG/ML 100ML VIAL. IV ONE; -LISI1TAB19 PO; +LISI1TAB37 PO; -OMEP40CA45 PO; +OMEP40CA7 PO
--- NOTE | 2021-03-23 17:56 | KCIC ---
Digital Mammogram Bilateral History: Routine screening Technique: 2-D digital CC and MLO views were obtained. CAD - computer aided detection was utilize d. Comparison: Mammogram from 04/10/2019. Findings: Breast Tissue Density B : There are scattered areas of fibroglandular density There are no suspicious masses, malignant appearing calcifications, or areas of architectural distort ion. Impression: No evidence of malignancy. Assessment: BI-RADS Category 1: Negative. Recommendation: Routine screening mammograms. The patient will receive a letter with the results in the mail. Patient information will be entered i nto the mammography reminder system with a target recall date for the next mammogram. A reminder munir er will be generated. Electronically signed by: Luisana Lopez MD (03/23/2021 5:54 PM) [email or web address]
== END ==
LOC: KCIC MAMMO 09:33
PROVIDERS: ATTEND Internal Medicine
DX: Z12.31 Encounter for screening mammogram for malignant neoplasm of breast (principal)
CPT/HCPCS: 77067